=== PATIENT | female | born 1995 | race Caucasian/White ===

== ENCOUNTER 2023-04-22 18:40 | Inpatient (IN) | payer OTHER ==
[~2023-04-22] VITALS: Ht 154.9 cm; Wt 68.0 kg
[2023-04-22] MEDS ORDERED: PRENATAL TABLE1 EAC1 PO (19:15)
[2023-04-22] MEDS ORDERED: VAZALORE81 MG PO (19:15)
[2023-04-22 20:18] LABS: HEMATOCRIT 35.3 % (36.0-45.00); HEMOGLOBIN 11.9 g/dL (12.0-15.00); MEAN CELL VOLUME 82.8 fL (80.00-100.00); MEAN CORPUSCULAR HGB CONC 33.8 g/dl (32.0-36.0); PLATELET COUNT 255 K/uL (150-450); RED BLOOD COUNT 4.26 M/uL (4.00-6.00); RED CELL DISTRIBUTION WIDTH 13.1 % (11.5-14.5)
[2023-04-22 20:22] LABS: PH,URINE 6.5 (5.0-8.0); URINE APPEARANCE Turbid; URINE BILIRRUBIN Negative (NEGATIVE); URINE BLOOD Small; URINE COLOR Yellow; URINE GLUCOSE Negative (NEGATIVE); URINE LEUKOCYTE Moderate; URINE NITRATE Negative
[2023-04-22 20:25] LABS: URINE BACTERIA 133.5 uL (0.0-1933); URINE RBC 78.3 uL (0.0-20.8)
[2023-04-22 20:41] LABS: URINE EPITHELIAL CELLS 1.2 uL (0.0-38.8); URINE PROTEIN 300 (NEGATIVE); URINE WBC > 5548.3 uL (0.0-23.2)
[2023-04-22 20:43] LABS: INR < 0.93; PARTIAL THROMBOPLASTIN TIME 26.7 SECONDS (22.0-34.0); PROTHROMBIN TIME 9.8 SECONDS (9.0-11.5)
[2023-04-22 20:48] LABS: ALBUMIN 2.8 gm/dL (3.4-5.0); BILIRUBIN TOTAL 0.7 mg/dL (0.3-1.2); CALCIUM 9.1 mg/dL (8.5-10.1); CREATININE SERUM 0.46 mg/dL (0.55-1.02); GFR 165.51; GLOBULINA 4.3 G/DL (2.4-3.5); POTASSIUM 4.84 mEq/L (3.5-5.1); TOTAL PROTEIN 7.1 gm/dL (6.4-8.2)
[2023-04-24 10:31] LABS: URINE PROT QUANT 24HR 17.9 MG/DL
[2023-04-24 10:39] LABS: URINE PROT QUANT 24 HR 375.9 MG/24HR (42-225)
== END 2023-04-25 15:51 | disposition home or self-care (01) | DRG 833 ==
LOC: OBS/DEL 18:40 → OB/GYN 04-23 17:25 → LDR 04-23 17:25 → OB/GYN 04-23 20:07
PROVIDERS: Student in an Organized Health Care Education/Training Program; ADMIT Obstetrics & Gynecology; ATTEND Obstetrics & Gynecology
PROC: BT43ZZZ Ultrasonography of Bilateral Kidneys (ICD-10-PCS; principal; 2023-04-23)
PROC: 4A1HXCZ Monitoring of Products of Conception, Cardiac Rate, External Approach (ICD-10-PCS; 2023-04-23)
PROC: BY4FZZZ Ultrasonography of Third Trimester, Single Fetus (ICD-10-PCS; 2023-04-23)
DX: O23.03 Infections of kidney in pregnancy, third trimester (principal); O26.843 Uterine size-date discrepancy, third trimester; O36.8130 Decreased fetal movements, third trimester, not applicable or unspecified; O34.211 Maternal care for low transverse scar from previous cesarean delivery; Z3A.36 36 weeks gestation of pregnancy; Z20.822 Contact with and (suspected) exposure to COVID-19

== ENCOUNTER 2023-05-10 11:30 | Inpatient (IN) | payer OTHER ==
[~2023-05-10] VITALS: Ht 154.9 cm; Wt 68.0 kg
[~2023-05-10 11:30] MED LIST: PRENATAL TABLE1 EAC1 PO; VAZALORE81 MG PO
[2023-05-10 15:24] LABS: PH,URINE 6.5 (5.0-8.0); URINE APPEARANCE Turbid; URINE BILIRRUBIN Negative (NEGATIVE); URINE BLOOD Negative; URINE COLOR Yellow; URINE GLUCOSE Negative (NEGATIVE); URINE LEUKOCYTE Small; URINE NITRATE Negative; URINE PROTEIN Negative (NEGATIVE)
[2023-05-10 15:26] LABS: HEMATOCRIT 35.5 % (36.0-45.00); HEMOGLOBIN 11.8 g/dL (12.0-15.00); MEAN CORPUSCULAR HEMOGLOBIN 27.6 pg (27.00-32.0); MEAN CORPUSCULAR HGB CONC 33.2 g/dl (32.0-36.0); PLATELET COUNT 262 K/uL (150-450); RED BLOOD COUNT 4.27 M/uL (4.00-6.00); RED CELL DISTRIBUTION WIDTH 13.5 % (11.5-14.5)
[2023-05-10 15:28] LABS: URINE BACTERIA 7879.7 uL (0.0-1933); URINE EPITHELIAL CELLS 123.2 uL (0.0-38.8); URINE RBC 12.3 uL (0.0-20.8); URINE WBC 100.9 uL (0.0-23.2)
[2023-05-10 15:47] LABS: ALBUMIN 2.9 gm/dL (3.4-5.0); BILIRUBIN TOTAL 0.42 mg/dL (0.3-1.2); CALCIUM 9.1 mg/dL (8.5-10.1); CREATININE SERUM 0.55 mg/dL (0.55-1.02); GFR 134.67; GLOBULINA 4.4 G/DL (2.4-3.5); INR < 0.93; PARTIAL THROMBOPLASTIN TIME 25.6 SECONDS (22.0-34.0); POTASSIUM 4.28 mEq/L (3.5-5.1); PROTHROMBIN TIME 9.8 SECONDS (9.0-11.5); TOTAL PROTEIN 7.3 gm/dL (6.4-8.2)
[2023-05-13] MEDS ORDERED: CEFAZOLIN SODIUM 1,000 MG VIAL ONE (13:22)
[2023-05-13] MEDS ORDERED: OXYTOCIN 10 UNITS/ML VIAL ONE ×3 (14:20→20:54)
[2023-05-13] MEDS ORDERED: ERYTHROMYCIN BASE 1 GM TUBE OP ONE ×2 (14:20→14:45)
[2023-05-13] MEDS ORDERED: OXYTOCIN 10 UNITS/ML VIAL IV ONE (14:45)
[2023-05-13] MEDS ORDERED: CEFAZOLIN SODIUM 1,000 MG VIAL IV ONE (17:45)
[2023-05-13] MEDS ORDERED: METOCLOPRAMIDE HCL 5 MG/ML VIAL IV SCH (18:45)
[2023-05-13] MEDS ORDERED: MORPHINE SULFATE 4 MG/ML CARTRIDGE IV PRN (18:45)
[2023-05-13] MEDS ORDERED: ONDANSETRON HCL 2 MG/ML VIAL IV PRN (18:45)
[2023-05-13] MEDS ORDERED: OXYTOCIN 1,000 ML IV SCH (18:45)
[2023-05-13] MEDS ORDERED: SIMETHICONE 125 MG CAPSULE PO SCH (21:00)
[2023-05-14] MEDS ORDERED: ACETAMINOPHEN 500 MG GEL..CAP PO SCH
[2023-05-14] MEDS ORDERED: ACETAMINOPHEN 325 MG TABLET PO SCH
[2023-05-14] MEDS ORDERED: KETOROLAC TROMETHAMINE 30 MG VIAL IV SCH
[2023-05-14 06:51] LABS: HEMATOCRIT 31.4 % (36.0-45.00); HEMOGLOBIN 10.6 g/dL (12.0-15.00); MEAN CELL VOLUME 80.4 fL (80.00-100.00); MEAN CORPUSCULAR HEMOGLOBIN 27.2 pg (27.00-32.0); MEAN CORPUSCULAR HGB CONC 33.8 g/dl (32.0-36.0); PLATELET COUNT 184 K/uL (150-450); RED CELL DISTRIBUTION WIDTH 13.9 % (11.5-14.5)
[2023-05-14] MEDS ORDERED: DOCUSATE SODIUM 100MG CAP PO SCH (09:00)
[2023-05-14] MEDS ORDERED: IBUprofen 800 MG TABLET PO SCH (09:00)
[2023-05-14 22:34] LABS: HEMOGLOBIN 10.7 g/dL (12.0-15.00); MEAN CELL VOLUME 80.6 fL (80.00-100.00); MEAN CORPUSCULAR HGB CONC 33.5 g/dl (32.0-36.0); PLATELET COUNT 212 K/uL (150-450); RED BLOOD COUNT 3.97 M/uL (4.00-6.00); RED CELL DISTRIBUTION WIDTH 13.9 % (11.5-14.5)
== END 2023-05-16 17:27 | disposition home or self-care (01) | DRG 788 ==
LOC: OB/GYN 05-13 08:30 → O/R 05-13 12:43 → OB/GYN 05-13 12:43
PROVIDERS: Obstetrics & Gynecology; ADMIT Obstetrics & Gynecology; ATTEND Obstetrics & Gynecology
PROC: 4A1HXCZ Monitoring of Products of Conception, Cardiac Rate, External Approach (ICD-10-PCS; 2023-05-13)
PROC: 10D00Z1 Extraction of Products of Conception, Low, Open Approach (ICD-10-PCS; principal; 2023-05-13 08:30)
DX: O34.211 Maternal care for low transverse scar from previous cesarean delivery (principal); O13.4 Gestational [pregnancy-induced] hypertension without significant proteinuria, complicating childbirth; Z3A.39 39 weeks gestation of pregnancy; Z37.0 Single live birth; Z20.822 Contact with and (suspected) exposure to COVID-19